=== PATIENT | male | born 1990 | race Caucasian/White ===

== ENCOUNTER 2021-06-21 14:47 | Emergency (ER) | payer SELFPAY ==
[~2021-06-21] VITALS: Ht 165.1 cm; Wt 54.0 kg
[2021-06-21 15:19] VITALS: BP 134/86
== END 2021-06-21 18:01 | disposition home or self-care (01) ==
LOC: ER 14:47
DX: U07.1 COVID-19 (principal); R03.0 Elevated blood-pressure reading, without diagnosis of hypertension
CPT/HCPCS: 87426; 99283